=== PATIENT | male | born 1980 | race African-American/Black ===

== ENCOUNTER 2020-05-10 21:32 | Emergency (ER) | payer SELFPAY ==
[2020-05-10 21:31] VITALS: BP 131/87; PULSE 86; RESP 20; TEMP 36.1; O2SAT 98
[2020-05-10 22:14] LABS: Glucose Point of Care > 500 (65-105)
[2020-05-10 22:15] VITALS: BP 129/91; PULSE 84; RESP 14; O2SAT 100
[2020-05-10 22:17] LABS: Basophils Percent Auto 0.5 % (0.2-1.2); Eosinophils Absolute Auto 0.1 K/mm3 (0-0.3); Eosinophils Percent Auto 1.3 % (0-4.4); Hematocrit 43.8 % (42.0-52.0); Hemoglobin 15.3 g/dL (14.0-18.0); Immature Granulocyte Absolute 0.02 K/mm3 (0.00-0.031); Immature Granulocyte Percent A 0.3 % (0-0.5); Lymphocytes Absolute Auto 2.42 K/mm3 (0.9-3.2); Lymphocytes Percent Auto 31.4 % (18.3-44.2); Mean Corpuscular HGB Conc 34.9 g/dl (32-36); Mean Corpuscular Hemoglobin 28.4 pg (26-34); Mean Corpuscular Volume 81.4 fl (80-100); Mean Platelet Volume 10.2 fl (7.4-10.4); Monocytes Absolute Auto 0.4 K/mm3 (0.1-0.6); Monocytes Percent Auto 5.6 % (2.6-8.5); Neutrophils Absolute Auto 4.7 K/mm3 (1.3-6.7); Neutrophils Percent Auto 60.9 % (45.5-73.1); Platelet Count Result 264 k/mm3 (150-375); Red Blood Count 5.38 M/mm3 (4.6-6.20); Red Cell Distribution Width 13.4 % (11.5-14.5); White Blood Count 7.7 K/mm3 (4.5-10.0)
[2020-05-10 22:20] LABS: Add Urine Microscopic? YES; Appearance Urine Clear (Clear); Bilirubin Urine Negative (Negative); Blood Urine Negative (Negative); Color Urine Colorless (Yellow); Glucose Urine UA 3+ mg/dL (Negative); Ketones Urine Trace mg/dL (Negative); Leukocyte Esterase Ur Negative LEU/UL (Negative); Nitrate Urine Negative (Negative); Protein Urine Negative (Negative); RBC Urine 0-2 /hpf (0-2); Squamous Epithelial Cell Urine Rare /hpf (Few); Urobilinogen Urine Negative mg/dL (<2.0); WBC Urine 0-3 /hpf
[2020-05-10 22:33] LABS: Beta-Hydroxybutyrate/Acetoacetate 0.49 mmol/L (0.02-0.27)
[2020-05-10] MEDS: SODIUM CHLORIDE 0.9% IV 1,000 ML 999 ML IV CONT ×2 (22:34→22:59)
[2020-05-10 22:37] LABS: Alanine Aminotransferase 18 U/L (4-50); Albumin Level 4.2 g/dL (3.5-5.1); Alkaline Phosphatase 203 U/L (38-126); Anion Gap 9 mmol/L (8-16); Aspartate Amino Transferase 21 U/L (17-59); Bilirubin,Total 0.4 mg/dL (0.2-1.3); Blood Urea Nitrogen 16 mg/dL (9-20); Calcium 9.2 mg/dL (8.4-10.2); Carbon Dioxide 23 mmol/L (22-30); Chloride 98 mmol/L (98-107); Estimated CRCL calculation 92 ml/min; Estimated Glomerular Filt Rate > 60; Magnesium 1.8 mg/dL (1.6-2.3); Phosphorus 3.2 mg/dL (2.5-4.5); Potassium 4.2 mmol/L (3.4-5.0); Sodium 130 mmol/L (137-145)
[2020-05-10 22:45] VITALS: BP 130/86; PULSE 77; RESP 21; O2SAT 98
[2020-05-10 22:46] LABS: Glucose 719 mg/dL (75-110)
[2020-05-10] MEDS: INSULIN HUMAN REGULAR (*BKC) 100 UNITS/ML 10 UNITS IV PUSH (22:58)
[2020-05-10 23:15] VITALS: BP 149/90; PULSE 76; RESP 24; O2SAT 99
--- NOTE | 2020-05-10 23:48 | ED.RECABL ---
HPI - Recheck/Abnormal Lab/Rx General Chief Complaint: Recheck/Abnormal Lab/Rx Stated Complaint: high blood sugar Time Seen by Provider: 05/10/20 22:26 History of Present Illness HPI narrative: Patient is a 39-year-old male who presents ER with urgency and polyuria the last couple days since stopping his diabetes medication. He takes glipizide 10 mg as well as Levemir 27 units twice daily. He started a new job and does not have insurance for another 6 weeks. Reports he cannot afford his medications. No fever/chills/sweats/nausea/vomiting. No dizziness or chest pain. Related Data Home Medications Medication Instructions Recorded Confirmed glipizide 10 mg PO DAILY 05/10/20 05/10/20 insulin detemir U-100 27 unit SUBCUT BID 05/10/20 05/10/20 Allergies Allergy/AdvReac Type Severity Reaction Status Date / Time No Known Allergies Allergy Unverified 05/10/20 21:42 Review of Systems Review of Systems: All systems reviewed & are unremarkable except as noted in HPI and below Constitutional: Constitutional: Denies chills, Denies fever(s) and Denies weakness ENT: Denies nasal congestion and Denies sore throat Cardiovascular: Cardiovascular: Denies chest pain Respiratory: Respiratory: Denies cough and Denies dyspnea Gastrointestinal: Gastrointestinal: Denies abdominal pain, Denies nausea and Denies vomiting Genitourinary: Genitourinary: Denies dysuria and Reports urinary frequency Endocrine: Endocrine: Reports polydipsia and Reports polyuria PMFSH Past Medical History Medical History (Updated 05/11/20 @ 02:03 by Alexi Brown MD) Diabetes mellitus Surgical History Surgical History (Updated 05/10/20 @ 23:50 by Alexi Brown MD) No pertinent past surgical history Social History Social History (Updated 05/10/20 @ 23:51 by Alexi Brown MD) Smoking status: Current every day smoker Exam Narrative: Exam Narrative: GENERAL: Well-appearing, well-nourished, and in no acute distress. HEAD: Normocephalic, atraumatic. ENT: Mucous membranes moist. CHEST: Clear to auscultation. No respiratory distress. HEART: Regular rate and rhythm. Normal peripheral pulses. ABDOMEN: Soft, nontender, nondistended. EXTREMITIES: Normal range of motion. No edema. SKIN: Warm, dry, no rash. NEURO: Alert and oriented x3. Course Course Emergency Course: Acute closed responding well. Will discharge home with glipizide prescription to [facility] which is $9. We will also start patient on 70/30 insulin from [facility] and doses at 15 units twice daily and then he can have NovoLog sliding scale. Vital Signs Vital signs: Vital Signs Temperature 96.9 F L 05/10/20 21:31 Pulse Rate 86 05/10/20 21:31 Respiratory Rate 20 05/10/20 21:31 Blood Pressure 131/87 05/10/20 21:31 Pulse Oximetry 98 05/10/20 21:31 Temperature 96.9 F L 05/10/20 21:31 Pulse Rate 69 05/11/20 01:57 Respiratory Rate 14 05/11/20 01:57 Blood Pressure 137/88 05/11/20 01:57 Pulse Oximetry 100 05/11/20 01:57 MDM - Recheck/Abnormal Lab/Rx Lab Data Result diagrams: 05/10/20 22:11 05/10/20 22:11 Labs: Lab Results 05/10/20 05/10/20 05/10/20 Range/Units 22:03 22:11 22:11 WBC 7.7 (4.5-10.0) K/mm3 RBC 5.38 (4.6-6.20) M/mm3 Hgb 15.3 (14.0-18.0) g/dL Hct 43.8 (42.0-52.0) % MCV 81.4 (80-100) fl MCH 28.4 (26-34) pg MCHC 34.9 (32-36) g/dl RDW 13.4 (11.5-14.5) % Plt Count 264 (150-375) k/mm3 MPV 10.2 (7.4-10.4) fl Immature Gran % (Auto) 0.3 (0-0.5) % Neut % (Auto) 60.9 (45.5-73.1) % Lymph % (Auto) 31.4 (18.3-44.2) % [place] % (Auto) 5.6 (2.6-8.5) % Eos % (Auto) 1.3 (0-4.4) % Baso % (Auto) 0.5 (0.2-1.2) % Lymph # (Auto) 2.42 (0.9-3.2) K/mm3 [place] # (Auto) 0.4 (0.1-0.6) K/mm3 Eos # (Auto) 0.1 (0-0.3) K/mm3 Baso # (Auto) 0.0 (0.0-0.1) K/mm3 Abs Immat Gran (auto) 0.02 (0.00-0.031) K/mm3
[2020-05-10 23:56] LABS: Glucose Point of Care 353 (65-105)
[2020-05-11 01:57] VITALS: BP 137/88; PULSE 69; RESP 14; O2SAT 100
== END 2020-05-11 02:25 | disposition home or self-care (01) ==
PROVIDERS: Emergency Provider Emergency Medicine
DX: E11.65 Type 2 diabetes mellitus with hyperglycemia (principal); Z79.4 Long term (current) use of insulin; T38.3X6A Underdosing of insulin and oral hypoglycemic [antidiabetic] drugs, initial encounter; Z91.120 Patient's intentional underdosing of medication regimen due to financial hardship
CPT/HCPCS: 36415; 80053; 81001; 82010; 82948; 83735; 84100; 85025; 96361; 96374; 99284; J1815; J7030

== ENCOUNTER 2021-05-19 02:18 | Emergency (ER) | payer OTHER, SELFPAY ==
--- NOTE | ~2021-05-19 | CT_ITS ---
EXAMINATION: CT abdomen pelvis wo con DATE: 05/19/2021 04:57 INDICATION: Right flank pain TECHNIQUE: Computed tomography (CT) of the abdomen and pelvis was performed without intravenous contr ast. Automated exposure control and iterative reconstruction technique were employed. The dose-length product was 392.40 mGy-cm. COMPARISON: None FINDINGS: Lung bases are clear. Heart size is normal. No pericardial or pleural effusion. Approximately 8 mm lo w-attenuation lesion in the right hepatic lobe most likely cyst or hemangioma but too small to charac terize. Gallbladder, pancreas and right adrenal gland are normal. 3.3 cm near relatively low attenuat ion left adrenal mass which remains indeterminate but statistically most likely to represent an adeno ma. Splenomegaly which appears related to 10 cm and 9 cm relatively low-attenuation likely splenic cy sts, both with some rim calcification but slightly greater than simple fluid attenuation. 1 mm nonobs tructing stone in the mid left kidney which is caudally displaced by the spleen. 6 mm nonobstructing stone at a lower pole calyx of the right kidney. Bladder is distended but otherwise unremarkable. [place] els including the appendix are normal. No free intraperitoneal gas or fluid. No pathologically enlarg ed abdominal or pelvic lymphadenopathy. 4 nonrib-bearing lumbar segments with sacralized L5 segment. Mild bilateral hip osteoarthritis. IMPRESSION: 1. Nonobstructing renal stones measuring 6 mm on the right and 1 mm on the left with no ureteral ston es or hydronephrosis. 2. 3.3 cm left adrenal mass with relatively low-attenuation suggestive but not diagnostic for adenoma . Would recommend follow-up with pre and postcontrast MRI. 3. 10 mm and 9 mm rim calcified likely cystic splenic lesions, also with slightly greater than simple fluid attenuation most likely either epidermoid cyst, pseudocyst related to prior trauma with differ ential also including echinococcal cyst in the appropriate clinical setting. In the absence of intrav enous contrast could also not absolutely exclude low-density solid neoplasm although this can be high ly unlikely. This could be further evaluated at the same time as the adrenal mass with pre and post c ontrast MRI. Reviewed, dictated and finalized at location A. IMPRESSION: 1. Nonobstructing renal stones measuring 6 mm on the right and 1 mm on the left with no ureteral stones or hydronephrosis. 2. 3.3 cm left adrenal mass with relatively low-attenuation suggestive but not diagnostic for adenoma. Would recommend follow-up with pre and postcontrast MRI . 3. 10 mm and 9 mm rim calcified likely cystic splenic lesions, also with slight ly greater than simple fluid attenuation most likely either epidermoid cyst, ps eudocyst related to prior trauma with differential also including echinococcal cyst in the appropriate clinical setting. In the absence of intravenous contras t could also not absolutely exclude low-density solid neoplasm although this ca n be highly unlikely. This could be further evaluated at the same time as the a drenal mass with pre and post contrast MRI.
[2021-05-19 02:22] VITALS: BP 133/91; PULSE 82; RESP 18; TEMP 36.2; O2SAT 99
--- NOTE | 2021-05-19 02:35 | PC.NURSE ---
pt c/o right flank pain and frequent urination x 2 days. possible hx of kidney stones, but pt does not recall. denies back injury.
--- NOTE | 2021-05-19 02:39 | PC.NURSE ---
pt reports he is type 2 diabetic and Lost his glipizide 2 days ago. urinary frequency. right flank pain x 2 days.
[2021-05-19 02:50] LABS: Add Urine Microscopic? YES; Appearance Urine Clear (Clear); Bilirubin Urine Negative (Negative); Blood Urine Negative (Negative); Color Urine Colorless (Yellow); Glucose Urine UA 3+ mg/dL (Negative); Ketones Urine Negative (Negative); Leukocyte Esterase Ur Negative LEU/UL (Negative); Nitrate Urine Negative (Negative); Protein Urine Negative (Negative); RBC Urine 0-2 /hpf (0-2); Squamous Epithelial Cell Urine Occasional /hpf (Few); Urobilinogen Urine Negative mg/dL (<2.0); WBC Urine 0-3 /hpf
[2021-05-19 02:55] LABS: Specific Grav Ur 1.035 (1.001-1.035)
[2021-05-19 03:25] LABS: Basophils Percent Auto 0.5 % (0.2-1.2); Eosinophils Absolute Auto 0.1 K/mm3 (0-0.3); Eosinophils Percent Auto 1.3 % (0-4.4); Hematocrit 41.4 % (42.0-52.0); Hemoglobin 14.3 g/dL (14.0-18.0); Immature Granulocyte Absolute 0.03 K/mm3 (0.00-0.031); Immature Granulocyte Percent A 0.4 % (0-0.5); Lymphocytes Absolute Auto 3.49 K/mm3 (0.9-3.2); Lymphocytes Percent Auto 46.5 % (18.3-44.2); Mean Corpuscular HGB Conc 34.5 g/dl (32-36); Mean Corpuscular Hemoglobin 28.6 pg (26-34); Mean Corpuscular Volume 82.8 fl (80-100); Mean Platelet Volume 9.8 fl (7.4-10.4); Monocytes Absolute Auto 0.6 K/mm3 (0.1-0.6); Monocytes Percent Auto 8.5 % (2.6-8.5); Neutrophils Absolute Auto 3.2 K/mm3 (1.3-6.7); Neutrophils Percent Auto 42.8 % (45.5-73.1); Platelet Count Result 219 k/mm3 (150-375); Red Cell Distribution Width 12.9 % (11.5-14.5); White Blood Count 7.5 K/mm3 (4.5-10.0)
[2021-05-19 03:52] LABS: Alanine Aminotransferase 15 U/L (4-50); Alkaline Phosphatase 305 U/L (38-126); Anion Gap 8 mmol/L (8-16); Aspartate Amino Transferase 27 U/L (17-59); Bilirubin,Total 0.7 mg/dL (0.2-1.3); Blood Urea Nitrogen 12 mg/dL (9-20); Carbon Dioxide 23 mmol/L (22-30); Chloride 97 mmol/L (98-107); Estimated CRCL calculation 157 ml/min; Estimated Glomerular Filt Rate > 60; Glucose 575 mg/dL (65-110); Potassium 3.9 mmol/L (3.4-5.0); Sodium 128 mmol/L (137-145)
[2021-05-19 03:58] VITALS: BP 141/90; PULSE 71; RESP 20; TEMP 36.3; O2SAT 97
[2021-05-19] MEDS: KETOROLAC 15 MG/ML VIAL (*BKC) IV PUSH (04:26)
[2021-05-19] MEDS: SODIUM CHLORIDE 0.9% IV 1,000 ML 999 ML IV CONT ×3 (04:26→05:45)
[2021-05-19] MEDS: ACETAMINOPHEN 500 MG TABLET 1000 MG PO (05:44)
[2021-05-19 06:14] VITALS: BP 147/101; PULSE 71; RESP 18; O2SAT 100
[2021-05-19 06:34] LABS: Glucose Point of Care 304 mg/dl (65-105)
[2021-05-19 06:48] LABS: Glucose Point of Care 292 mg/dl (65-105)
--- NOTE | 2021-05-19 07:10 | ED.BACK ---
HPI - Back Pain/Injury General Chief Complaint: Back Pain/Injury Stated Complaint: freq urination, flank pain Time Seen by Provider: 05/19/21 03:30 History of Present Illness HPI Narrative: Patient presents with low back pain. Patient reports he does light heavy lifting at work and thinks maybe he strained a muscle. Pain is achy, constant, worse with moving around and does radiate to his abdomen. Reports increased urinary frequency and reported history of diabetes but has been out of his medications for the past couple days. He denies any fevers, nausea, vomiting, diarrhea Related Data Home Medications Medication Instructions Recorded Confirmed glipizide 10 mg PO DAILY 05/10/20 05/10/20 insulin detemir U-100 27 unit SUBCUT BID 05/10/20 05/10/20 Allergies Allergy/AdvReac Type Severity Reaction Status Date / Time No Known Allergies Allergy Unverified 05/10/20 21:42 Review of Systems Review of Systems: CONSTITUTIONAL: Denies fever, chills, or sweats. EYES: Denies visual changes, redness, or discharge. ENT: Denies rhinorrhea, congestion, sore throat, or otalgia. CARDIOVASCULAR: Denies chest pain, palpitations, or edema. RESPIRATORY: Denies cough or dyspnea. GASTROINTESTINAL: Denies abdominal pain, nausea, vomiting, or diarrhea. GENITOURINARY: Denies dysuria or hematuria. SKIN: Denies rash or itching. MUSCULOSKELETAL: Denies joint pain, or myalgia. NEUROLOGIC: Denies headache, numbness, dizziness, or weakness. PSYCHIATRIC: Denies anxiety or depression. All systems reviewed & are unremarkable except as noted in HPI and below PMFSH Past Medical History Medical History Diabetes mellitus Surgical History Surgical History No pertinent past surgical history Social History Social History Smoking status: Current every day smoker Exam Narrative: GENERAL: Well-appearing, well-nourished, and in no acute distress. HEAD: Normocephalic, atraumatic. EYES: PERRLA and EOMI. ENT: Nares clear, no rhinorrhea or epistaxis. Mucous membranes moist. NECK: Supple. No masses. No JVD CHEST: Clear to auscultation. No respiratory distress. No wheezes rales or rhonchi HEART: Regular rate and rhythm. No murmur heard. Normal peripheral pulses. ABDOMEN: Soft, nontender, nondistended BACK: Mild tenderness palpation the right paraspinal area around L1 EXTREMITIES: Normal range of motion. No edema. SKIN: Warm, dry, no rash. NEURO: No focal deficits. Alert and oriented x3. PSYCH: Normal mood and affect. Course Reevaluation(s) Reevaluation #1: Patient reports feeling much improved and would like to go home Date: 05/19/21 Time: 07:01 Vital Signs Vital signs: Vital Signs Temperature 36.2 C L 05/19/21 02:22 Pulse Rate 82 05/19/21 02:22 Respiratory Rate 18 05/19/21 02:22 Blood Pressure 133/91 H 05/19/21 02:22 Pulse Oximetry 99 05/19/21 02:22 Temperature 36.3 C L 05/19/21 03:58 Pulse Rate 65 05/19/21 07:47 Respiratory Rate 20 05/19/21 07:47 Blood Pressure 147/99 H 05/19/21 07:47 Pulse Oximetry 98 05/19/21 07:47 MDM - Back Pain/Injury MDM Narrative Medical decision making narrative: H&P as above, vss, pt looks clinically well, exam reproducible tenderness in the low back, labs with elevated glucose without evidence of DKA, img with dental dental findings no ureteral stones, additional labs/img considered. symptomatic relief available as needed, patient treated with Toradol and fluids. On reevaluation pt continues to looks clinically well reporting large improvement in symptoms with improvement in glucose. Suspect muscle skeletal back pain and hyperglycemia related to medication noncompliance. Imaging findings reviewed with patient reports a history of splenic lesions diagnosed 1 year ago with plan for repeat imaging. dns dissection, pyelone
--- NOTE | 2021-05-19 07:30 | PC.NURSE ---
Called lab and added on a beta hydrobut. Talked to Singh
[2021-05-19 07:47] VITALS: BP 147/99; PULSE 65; RESP 20; O2SAT 98
== END 2021-05-19 07:58 | disposition home or self-care (01) ==
PROVIDERS: Emergency Provider Emergency Medicine
DX: S39.012A Strain of muscle, fascia and tendon of lower back, initial encounter (principal); E11.65 Type 2 diabetes mellitus with hyperglycemia; F17.200 Nicotine dependence, unspecified, uncomplicated; Z79.4 Long term (current) use of insulin; X50.0XXA Overexertion from strenuous movement or load, initial encounter
CPT/HCPCS: 36415; 74176; 80053; 81001; 82948; 85025; 96361; 96374; 99284; A9270; J1885; J7030

== ENCOUNTER 2022-12-23 16:19 | Emergency (ER) | payer MEDICAID, SELFPAY ==
[2022-12-23 16:52] VITALS: BP 134/96; PULSE 100; RESP 16; TEMP 36.8; O2SAT 100
--- NOTE | 2022-12-23 17:44 | ED.DENTAL ---
HPI - Dental/Oral General Chief complaint: Dental/Oral Stated complaint: Right side facial pain/dental Time Seen by Provider: 12/23/22 17:40 Source: RN notes reviewed History of Present Illness HPI Narrative: Patient presents emergency room from home for dental pain. Patient states symptoms again approximately 3 days ago. The pain is located in the right upper molar and radiates into the right ear. Patient states he has carious teeth in this region has had several teeth pulled before in the past patient does not currently follow with a dentist he states he has been using Listerine for the pain with minimal relief. Denies any fevers or chills throat pain or any other symptoms Related Data Home Medications Medication Instructions Recorded Confirmed glipizide 10 mg tablet, extended 10 mg PO DAILY 05/10/20 05/10/20 release 24 hr insulin detemir U-100 100 unit/mL 27 unit subcut BID 05/10/20 05/10/20 (3 mL) subcutaneous pen Allergies Allergy/AdvReac Type Severity Reaction Status Date / Time No Known Allergies Allergy Verified 12/23/22 16:19 Review of Systems Review of Systems: Gen.: Denies fevers or chills HEENT: See HPI Respiratory: Denies shortness of breath Neuro: Denies n headache or numbness Skin: Denies rash PMFSH Past Medical History Medical History Diabetes mellitus Surgical History Surgical History No pertinent past surgical history Social History Social History Smoking status: Current every day smoker Exam Narrative: APPEARANCE: No acute distress, nontoxic, resting in bed HEENT: Normocephalic, atraumatic, TMs clear bilaterally, nares patent, oral mucosa moist, airway patent, tooth #1 is carious down to the gumline there is mild erythema with no fluctuance of the gum there is numerous carious teeth present and several pulled teeth no overlying cheek swelling RESPIRATORY: No respiratory distress MUSCULOSKELETAl: Moves all extremities. NEURO: Awake and alert. Following commands, speech normal, no focal deficits SKIN:: Warm, dry. Normal Color PSYCHIATRIC: Normal affect/mood Course Course Emergency Course: Discussed with patient results of workup and diagnosis. Discussed need for follow-up with primary care, proper use of medication, and reasons to return to the emergency department. Patient understands and agrees to current treatment plan Patient drove himself to the emergency department Vital Signs Vital signs: Vital Signs Temperature 98.2 F 12/23/22 16:52 Pulse Rate 100 12/23/22 16:52 Respiratory Rate 16 12/23/22 16:52 Blood Pressure 134/96 H 12/23/22 16:52 Pulse Oximetry 100 12/23/22 16:52 Oxygen Delivery Room Air 12/23/22 16:52 Temperature 98.2 F 12/23/22 16:52 Pulse Rate 100 12/23/22 16:52 Respiratory Rate 16 12/23/22 16:52 Blood Pressure 134/96 H 12/23/22 16:52 Pulse Oximetry 100 12/23/22 16:52 Oxygen Delivery Room Air 12/23/22 16:52 MDM - Dental/Oral MDM Narrative Medical decision making narrative: Patient presents for carious tooth #1 for the past 3 days there is mild erythema no fluctuance no overt sign of abscess. The patient did drive himself to the emergency department we will treat with ibuprofen and antibiotics with patient to follow-up with dentist as an Differential Diagnosis Differential diagnosis: Likely dental caries, toothache, dental abscess and fracture of tooth Discharge Plan Discharge Clinical Impression: Dental abscess, Dental caries Patient Disposition: Home, Self-Care Condition: Stable Instructions: Antibiotic Form, Dental Abscess (ED), Toothache (ED) Additional Instructions: Return for increasing pain fever or any other symptoms of concern Prescriptions: New ibuprofen 600 mg tablet 600 mg PO TID PRN (Reason: pain) Qty:
[2022-12-23] MEDS: PENICILLIN V POTASSIUM 250 MG TABLET 500 MG PO (18:00)
[2022-12-23] MEDS: IBUPROFEN 600 MG TABLET PO (18:00)
== END 2022-12-23 18:18 | disposition home or self-care (01) ==
LOC: ANHED 18:07
PROVIDERS: Emergency Provider Emergency Medicine
DX: K04.7 Periapical abscess without sinus (principal); K02.9 Dental caries, unspecified; E11.9 Type 2 diabetes mellitus without complications; Z79.4 Long term (current) use of insulin
CPT/HCPCS: 99283; A9270